=== PATIENT | male | born 1935 | race Caucasian/White ===

== ENCOUNTER 2018-08-30 09:01 | Inpatient (IN) ==
--- NOTE | 2018-08-30 09:11 | Emergency Department Note ---
Disposition Clinical Impression: Altered mental status, Fever, History of shingles, Congestion of respiratory tract, Dementia Disposition: Admitted As Inpatient Forms: ED Satisfaction Letter, Work/School Release Time of Disposition: 10:34 General Adult HPI - General Chief complaint: ED General Medical Stated complaint: increased confusion/congestion/tid pod ingestion Time Seen by Provider: 08/30/18 09:01 Source: patient Mode of arrival: ambulatory Limitations: no limitations Nursing Notes Reviewed: Yes Vital Signs Reviewed: Yes - History of Present Illness HPI Narrative: Patient arrives by EMS after having a decreased mental status or change in mental status. He ate department tide pod last night. His appetite seems to have been good but he is been losing weight over the last few months. The patient has shingles and is currently under treatment for this. Onset (ago): Just [employer] Location: other (Generally debilitated with altered mentation) Pain Scale: 0 Consistency: constant Improves with: nothing Worsens with: nothing - Related Data Allergies Allergy/AdvReac Type Severity Reaction Status Date / Time No Known Allergies Allergy Verified 08/30/18 09:26 All systems ED: reviewed and negative except as stated. Review of Systems: As Per HPI Constitutional: Denies: fever, chills, weakness, weight change Eyes: Denies: eye pain, eye discharge, vision change ENT ED: Denies: ear pain, throat pain, dental pain, hearing loss, epistaxis, congestion, dysphagia Cardiovascular: Denies: chest pain, palpitations, dyspnea on exertion, edema, syncope Respiratory: Denies: cough, dyspnea, wheezes, hemoptysis, stridor Gastrointestinal: Denies: abdominal pain, nausea, vomiting, diarrhea, constipation, hematemesis, melena, hematochezia Genitourinary: Denies: urgency, dysuria, frequency, hematuria Musculoskeletal: Denies: back pain, neck pain, arthralgia, myalgia Integumentary: Denies: rash, abrasion, lesions Neurological: Reports: as per HPI, confusion, other (Altered mental status) Psychiatric: Denies: anxiety, depression, suicidal thoughts, homicidal thoughts, auditory hallucinations, visual hallucinations Endocrine: Denies: fatigue Hematological/Lymphatic: Denies: easy bleeding, easy bruising Allergic/Immunologic: Denies: facial swelling, urticaria Past Medical History - Past Medical History Attestation: Yes The following information was validated with the patient. Source: obtained from family, other (EMS) Physical Exam - General Limitations: altered mental status General appearance: alert, in no apparent distress, other (Disheveled appearance) - Head Head exam: atraumatic, normocephalic, normal inspection - Eye Eye exam: Present: normal appearance, PERRL, EOMI - ENT ENT exam: normal exam, normal oropharynx, mucous membranes moist - Neck Neck exam: Present: normal inspection, full ROM, trachea midline - Chest Chest inspection: Present: normal inspection, symmetric chest wall rise - Respiratory Respiratory exam: Present: normal lung sounds bilaterally - Cardiovascular Cardiovascular exam: Present: regular rate, normal rhythm, normal heart sounds - Abdominal Exam Abdominal exam: Present: soft, Non-Tender - Extremities Exam Extremities exam: Present: normal inspection, full ROM. Absent: tenderness, pedal edema - Back Exam Back exam: Present: normal inspection, full ROM. Absent: tenderness - Neurological Exam Neurological exam: Present: alert, CN II-XII intact, other (Appears oriented to person but not place or time) - Psychiatric Psychiatric exam: Present: normal affect, normal mood - Skin Skin exam: Present: warm, dry, intact, rash (Varicella-zoster rash to left mid abdomen) Course Vital Signs Temperature 101.6 F 08/30/18 09:02 Pulse Rate 126 08/30/18 09:02 Respiratory Rate 20 08/30/18 09:02 Blood Pressure 120/83 08/30/18 09:02 O2 Sat by Pulse Oximetry 94 08/30/18 09:02 Temperature 101.6 F 08/30/18 09:02 Pulse Rate 126 08/30/18 09:02 Respiratory Rate 20 08/30/18 09:02 Blood Pressure 120/83 08/30/18 09:02 O2 Sat by Pulse Oximetry 94 08/30/18 09:02 Oxygen Delivery Oxygen Delivery Room Air Medical Decision Making - MDM Narrative Medical decision making narrative: I Reviewed the patient's medication list Case was discussed with Dr. Brown who graciously accepts admission - Lab Data Lab results reviewed: Yes I reviewed the patient's lab results. Result diagrams: 08/30/18 09:30 Lab Results 08/30/18 Range/Units 09:30 WBC 18.1 H (4.3-11.1) K/mcL RBC 4.40 (4.19-5.50) M/mcL Hgb 13.4 (12.9-16.9) g/dL Hct 39.0 (37.5-50.1) % MCV 88.6 (83.0-100.0) fL MCH 30.5 (28.0-33.3) pg MCHC 34.4 (31.6-35.5) g/dL RDW 13.0 (11.5-14.5) % Plt Count 234 (140-400) K/mcL MPV 9.4 (9.4-12.4) fL Immature Gran % 0.5 (0-4) % Seg Neutrophils % 87.8 % Lymphocytes % 3.8 % Monocytes % 7.6 % Eosinophils % 0.1 % Basophils % 0.2 % Neutrophils # 15.9 H (1.6-8.9) K/mcL Lymphocytes # 0.7 (0.6-4.6) K/mcL Monocytes # 1.4 H (0.0-1.3) K/mcL Eosinophils # 0.0 (0.0-0.6) K/mcL Basophils # 0.0 (0.0-0.2) K/mcL - Radiology Data Radiology results reviewed: Yes I reviewed the patient's radiology results. - EKG Data EKG #1 EKG attestation: Yes I reviewed and interpreted this EKG. EKG results narrative: EKG shows probable sinus tachycardia with a rate of 125 bpm ID interval is 121 ms [place] 85 ms QTQTC intervals 400 9590 ms respectively R axis of -[address] elevation
[2018-08-30] MEDS ORDERED: 0.9 % Sodium Chloride 1,000 ML IVC SCH (09:15)
[2018-08-30] MEDS ORDERED: 0.9 % Sodium Chloride 1,000 ML IVC ONE ×4 (09:16→13:03)
[2018-08-30 09:51] LABS: Basophils % 0.2 %; Eosinophils % 0.1 %; Hemoglobin 13.4 g/dL (12.9-16.9); Immature Granulocytes % 0.5 % (0-4); Lymphocytes # 0.7 K/mcL (0.6-4.6); Lymphocytes % 3.8 %; Mean Corpuscular HGB Conc 34.4 g/dL (31.6-35.5); Mean Corpuscular Hemoglobin 30.5 pg (28.0-33.3); Mean Corpuscular Volume 88.6 fL (83.0-100.0); Mean Platelet Volume 9.4 fL (9.4-12.4); Monocytes # 1.4 K/mcL (0.0-1.3); Monocytes % 7.6 %; Neutrophils # 15.9 K/mcL (1.6-8.9); Platelet Count 234 K/mcL (140-400); Segmented Neutrophils % 87.8 %; White Blood Count 18.1 K/mcL (4.3-11.1)
[2018-08-30 10:10] LABS: Troponin I 0.03 ng/mL (< 0.04)
[2018-08-30 10:11] LABS: Albumin 3.8 g/dL (3.5-5.7); Albumin/Globulin Ratio 1.1 (1.1-2.2); Bilirubin,Total 0.8 mg/dL (0.3-1.0); Calcium 9.3 mg/dL (8.6-10.3); Globulin 3.5 g/dL (2.4-3.5); Potassium 4.2 mEq/L (3.5-5.1); Total Protein 7.3 g/dL (6.4-8.9)
[2018-08-30 10:17] LABS: Bilirubin,Urine Negative (Negative); Blood,Urine Moderate (Negative); Clarity,Urine Slightly Cloudy (Clear); Color,Urine Yellow (Yellow); Glucose,Urine (UA) Normal (Normal); Ketones,Urine Negative (Negative); Leukocyte Esterase,Urine Negative (Negative); Nitrite,Urine Negative (Negative); Protein,Urine 100 mg/dL (Neg-Trace); Specific Gravity,Urine >= 1.030 (1.010-1.025); Urobilinogen,Urine Normal (Normal)
[2018-08-30] MEDS ORDERED: Acetaminophen 650 MG RECTAL SUPP RC ONE (10:21)
[2018-08-30 10:25] LABS: Amorphous Sediment,Urine Moderate (Few); Granular Casts,Urine Moderate per lpf (None Seen); Hyaline Casts,Urine Few per lpf (None-Few); Renal Epithelial Cells,Urine Few per hpf (None-Few); Squamous Epithelial Cell,Urine Few per lpf (None-Few); Transitional Epi Cells,Urine Moderate per hpf (None-Few); WBC,Urine 0-3 per hpf (0-3)
[2018-08-30 10:26] LABS: Mucus,Urine Few (Few)
[2018-08-30] MEDS ORDERED: cefTRIAXone 1,000 MG in 0.9 % Sodium Chloride Mini Bag 100 ML IVPB ONE (10:34)
[2018-08-30] MEDS ORDERED: Naloxone 0.4 MG/ML INJ IVP PRN (13:03)
--- NOTE | 2018-08-30 14:02 | Internal Med History&Physical ---
Date of Encounter: 08/30/18 Time of Encounter: 13:55 Assessment and Plan (1) Altered mental status Current visit: Yes Status: Acute Should improve as underlying infection is Qualifiers: Altered mental status type: unspecified Qualified Code(s): R41.82 - Altered mental status, unspecified (2) Bronchitis Current visit: Yes Status: Acute Start Rocephin and azithromycin, repeat chest x-ray could be pneumonia follow-up CBC (3) Ingestion of foreign material Current visit: Yes Status: Acute Poison control was contacted Qualifiers: Encounter type: subsequent encounter Qualified Code(s): T18.9XXD - Foreign body of alimentary tract, part unspecified, subsequent encounter (4) Elevated lactic acid level Current visit: Yes Status: Acute Concerns about sepsis the nurse will inquire about sepsis protocol and how to get going (5) Acute kidney injury Current visit: Yes Status: Acute IV hydration follow the BMP (6) Leukocytosis Current visit: Yes Status: Acute Zosyn and Rocephin and follow-up CBC Qualifiers: Leukocytosis type: unspecified Qualified Code(s): D72.829 - Elevated white blood cell count, unspecified (7) Tachycardia Current visit: Yes Status: Acute Should improve with IV fluids and infection treatment (8) Skin abrasion Current visit: Yes Status: Acute We will wash and use anabolic ointment until clear (9) Fever Current visit: Yes Status: Acute She did improve as infection is being treated Qualifiers: Fever type: due to other condition Qualified Code(s): R50.81 - Fever presenting with conditions classified elsewhere (10) History of shingles Current visit: Yes Status: Acute Looks like it is fading is not complaining of any pain (11) Dementia Current visit: Yes Status: Acute Fasteners to get information from the hospital tomorrow Qualifiers: Dementia type: unspecified type Dementia behavioral disturbance: without behavioral disturbance Qualified Code(s): F03.90 - Unspecified dementia without behavioral disturbance Internal Medicine - H&P: HPI Admitted From: Home Plans for Post Hospital Care: Home History of present illness: Mr. Gao is a 81 year old male [facility] but [facility] because of his sepsis appearance. He was brought in by EMS to emergency room after having change in mental status currently eating Tide pods, poison control was called, apparently has been treated for shingles left abdominal area he has a history of dementia and he did not give me much information. Blood that was from the emergency room from nursing staff. Does have an abrasion on his right scalp any mention following couple weeks ago but he must be scratching at scab. Reports doing well right now chest x-ray showed no acute abnormality he does have a white count of 18.1 increased neutrophil urine elevated 24 creatinine 1.41 lactic acid 4.4 he has urine protein loss. CT scan of the brain showed chronic small vessel disease and mild atrophy he reports having a cough but unsure what color sputum redness. Dr. christie thought that he probably has pneumonia because he has dehydration and did not show up on the chest x-ray. We will admit him to hospital answers questions concerns addressed. He denied ch est pain shortness of breath. Past Med Surg Social Fam HX - Past Medical History Source: other (EMS and emergency room) Medical history: dementia Psychiatric history: no psych history - Past Surgical History Surgical History: no surgical history - Social History Smoking Status: Unknown if ever smoked Smokeless Tobacco Status: No Alcohol use: none Drug use: none - Family History Father Living Status: Mother Living Status: Internal Medicine - H&P: Meds Allergy/AdvReac Type Severity Reaction Status Date / Time No Known Allergies Allergy Verified 08/30/18 09:26 All Systems PM: A 10-system review of systems was performed and is negative for pertinent findings except as documented above in the HPI. - Constitutional Vitals: Temp Pulse Resp BP Pulse Ox 101.4 F 123 18 99/67 94 08/30/18 12:07 08/30/18 10:37 08/30/18 12:07 08/30/18 12:07 08/30/18 10:37 General appearance: Present: A&O X 0 - Head Head exam: Present: normocephalic Additional comments: He has a skin Eick abrasion on the right frontal hairline area looks like he scratches it, no pus or spreading redness - Eye Eye exam: Present: PERRL, conjuntiva pink, sclera anicteric Pupils: Present: PERRL - Neck Neck exam general surgery: Present: supple, trachea midline. Absent: lymphadenopathy - Respiratory Respiratory exam: Present: CTAB (Except for anterior congestion). Absent: acc essory muscle use, rales, rhonchi, wheezes - Cardiovascular Cardiovascular exam: Present: +S1, +S2, tachycardia. Absent: diastolic murmur, gallop, rubs, systolic murmur - GI/Abdominal GI/Abdominal exam: Present: normal bowel sounds, soft, no peritoneal signs. Absent: distended, tenderness - Extremities Exam Extremities exam: Present: warm, radial pulses palpable and symmetrical. Absent: calf tenderness, cyanotic, pedal edema - Neurological Exam Neurological exam: Absent: facial droop, speech deficit - Skin Skin exam: Present: dry, intact, rash (Shingles rash on the left lower abdominal area that is somewhat fading) Internal Med - H&P Results - Labs CBC & Chem 7: 08/30/18 09:30 08/30/18 09:30 Labs: Short CBC 08/30/18 Range/Units 09:30 WBC 18.1 H (4.3-11.1) K/mcL Hgb 13.4 (12.9-16.9) g/dL Hct 39.0 (37.5-50.1) % Plt Count 234 (140-400) K/mcL Neutrophils # 15.9 H (1.6-8.9) K/mcL BMP 08/30/18 09:30 Sodium 138 Potassium 4.2 Chloride 102 Carbon Dioxide 24 BUN 24 H Creatinine 1.41 H Glucose 139 H Calcium 9.3 Cardiac Enzymes 08/30/18 Range/Units 09:30 Troponin I 0.03 (< 0.04) ng/mL Liver Function 08/30/18 Range/Units 09:30 Total Bilirubin 0.8 (0.3-1.0) mg/dL AST 23 (13-39) Units/L ALT 17 (7-52) Units/L Alkaline Phosphatase 80 (34-104) Units/L Albumin 3.8 (3.5-5.7) g/dL Urine 08/30/18 Range/Units 10:13 Urine Color Yellow (Yellow) Urine Clarity Slightly Cloudy A (Clear) Urine pH 5.0 (5.0-8.0) pH Units Ur Specific Henderson >= 1.030 H (1.010-1.025) Urine Protein 100 H (Neg-Trace) mg/dL Urine Glucose (UA) Normal (Normal) mg/dL - Impressions ITS Impressions Chest X-Ray 08/30/18 09:10 IMPRESSION: 1. No acute cardiopulmonary disease. D/ / 08/30/2018 09:36:34 Lilibeth Frankel MD / gustavo Interpreting Provider: Lilibeth Frankel MD
[2018-08-30] MEDS: Azithromycin 500 MG in D5% in Water 250 ML IVPB SCH (15:13)
[2018-08-30] MEDS: 0.9 % Sodium Chloride 1,000 ML IVC SCH (15:13)
[2018-08-30] MEDS: Piperacillin/Tazobactam 3.375 GM in 0.9 % Sodium Chloride Mini Bag 100 ML IVP SCH (16:25)
[2018-08-31] MEDS: Piperacillin/Tazobactam 3.375 GM in 0.9 % Sodium Chloride Mini Bag 100 ML IVP SCH ×3 (00:29→18:49)
[2018-08-31] MEDS: 0.9 % Sodium Chloride 1,000 ML IVC SCH ×2 (04:01→10:28)
[2018-08-31] MEDS: *HR* Enoxaparin 40 MG/0.4 ML SYRINGE SQ SCH (05:17)
[2018-08-31 05:38] LABS: Basophils # 0.1 K/mcL (0.0-0.2); Basophils % 0.4 %; Eosinophils # 0.1 K/mcL (0.0-0.6); Eosinophils % 0.6 %; Hematocrit 29.7 % (37.5-50.1); Hemoglobin 10.3 g/dL (12.9-16.9); Immature Granulocytes % 0.4 % (0-4); Lymphocytes # 1.7 K/mcL (0.6-4.6); Lymphocytes % 12.3 %; Mean Corpuscular HGB Conc 34.7 g/dL (31.6-35.5); Mean Corpuscular Hemoglobin 30.5 pg (28.0-33.3); Mean Corpuscular Volume 87.9 fL (83.0-100.0); Mean Platelet Volume 9.4 fL (9.4-12.4); Monocytes # 1.1 K/mcL (0.0-1.3); Monocytes % 8.1 %; Neutrophils # 10.8 K/mcL (1.6-8.9); Platelet Count 176 K/mcL (140-400); Red Blood Count 3.38 M/mcL (4.19-5.50); Red Cell Distribution Width 13.1 % (11.5-14.5); Segmented Neutrophils % 78.2 %; White Blood Count 13.8 K/mcL (4.3-11.1)
[2018-08-31 05:55] LABS: BUN/Creatinine Ratio 18 (6-26); Blood Urea Nitrogen 22 mg/dL (8-23); Calcium 8.5 mg/dL (8.6-10.3); Carbon Dioxide 23 mEq/L (23-29); Chloride 107 mEq/L (98-107); Glucose 111 mg/dL (70-105); Osmolality,Calculated 286 (280-300); Potassium 3.7 mEq/L (3.5-5.1); Sodium 136 mEq/L (136-145); eGFR For African Americans > 60 (> 60); eGFR For Non-African Americans 56 (> 60)
[2018-08-31] MEDS: 0.45 % Sodium Chloride w/KCl 20 MEQ/1,000 ML MLS IVC SCH (13:34)
--- NOTE | 2018-08-31 14:35 | Internal Med Progress Note ---
Date of Encounter: 08/31/18 Time of Encounter: 12:35 - Assessment and plan (1) Altered mental status Current Visit: Yes Status: Acute Assessment and plan: August 31. Suspect back to baseline mental status with no impairment of abram rtness. There appears to be significant underlying dementia. Qualifiers: Altered mental status type: unspecified Qualified Code(s): R41.82 - Altered mental status, unspecified (2) Anemia Current Visit: Yes Status: Acute Assessment and plan: August 31. Hemoglobin has decreased to 10.3 with administration of IV fluids. Anemia testing will be done. Qualifiers: Anemia type: unspecified type Qualified Code(s): D64.9 - Anemia, unspecified (3) Dementia Current Visit: Yes Status: Acute Assessment and plan: August 31. MMSE will be done. B12 and TSH will be ordered. Qualifiers: Dementia type: unspecified type Dementia behavioral disturbance: without behavioral disturbance Qualified Code(s): F03.90 - Unspecified dementia without behavioral disturbance (4) Ingestion of foreign material Current Visit: Yes Status: Acute Assessment and plan: August 31. Observe Qualifiers: Encounter type: subsequent encounter Qualified Code(s): T18.9XXD - Foreign body of alimentary tract, part unspecified, subsequent encounter (5) Acute kidney injury Current Visit: Yes Status: Acute Assessment and plan: August 31. Creatinine has decreased to 1.22. Continue IV fluids and recheck labs in a.m. (6) Elevated lactic acid level Current Visit: Yes Status: Acute Assessment and plan: August 31. Continue antibiotics. Probiotics will be started. Recheck labs in a.m. - Subjective Interval history: August 31. He has no new complaints. He was admitted through emergency room with confusion and reportedly ate a Tide laundry detergent pod. He cannot give significant reliable history because of dementia. He denies pain or dyspnea at the present time. - Constitutional Vitals: Temp Pulse Resp BP Pulse Ox 99.7 F 77 16 111/71 94 08/31/18 10:37 08/31/18 10:37 08/31/18 10:37 08/31/18 10:37 08/31/18 10:37 General appearance: Present: A&O X 0 Exam: He is sitting in a chair at bedside resting comfortably and appears in no acute distress. HEENT is unremarkable. Heart is regular without murmurs gallops or ectopics. Lungs are clear. Abdomen is soft and nontender. Exam is limited because he is in the seated position. Extremities show no pitting edema. Neurologic exam shows impaired mental status with inability to state his age. He does know his year of . He cannot do simple money math consistently. He has no pronator drift and there is no cogwheeling or rigidity on passive range of motion of his arms. I reviewed his medications and lab results. Internal Medicine: Result - Labs CBC & Chem 7: 08/31/18 05:27 08/31/18 05:27 Labs: Short CBC 08/31/18 Range/Units 05:27 WBC 13.8 H (4.3-11.1) K/mcL Hgb 10.3 L D (12.9-16.9) g/dL Hct 29.7 L (37.5-50.1) % Plt Count 176 (140-400) K/mcL Neutrophils # 10.8 H (1.6-8.9) K/mcL BMP 08/31/18 05:27 Sodium 136 Potassium 3.7 Chloride 107 Carbon Dioxide 23 BUN 22 Creatinine 1.22 Glucose 111 H Calcium 8.5 L - Impressions Impressions Chest X-Ray 08/30/18 09:10 IMPRESSION: 1. No acute cardiopulmonary disease. D/ / 08/30/2018 09:36:34 Lilibeth Frankel MD / gustavo Interpreting Provider: Lilibeth Frankel MD Consult Discharge Plan - Plan Referrals: [facility] [Primary Care Provider[facility] - 1 week
[2018-08-31] MEDS: Azithromycin 500 MG in D5% in Water 250 ML IVPB SCH (14:42)
--- NOTE | 2018-08-31 18:07 | Electrocardiograph Report ---
[place] [id number] Test Date: 2018-08-30 Pat Name: Fabiano Gao Department: EDP-11 Room: [facility] Gender: M Sticker Hand: : 1935 Requested By: Gasper Call Order Number: [id number] Reading MD: Kasandra Arcos Measurements Intervals [place] Rate: 125 P: 259 MI: 121 QRS: -24 QRSD: 85 T: 68 QT: 409 QTc: 590 Interpretive Statements Ectopic atrial tachycardia Borderline left axis deviation Anterior infarct, old Electronically Signed On 08-31-2018 18:05:48 EDT by Kasandra Arcos
[2018-08-31] MEDS: Lactobacillus 1 EACH CAP.SPRINK PO SCH (20:59)
[2018-09-01] MEDS: Piperacillin/Tazobactam 3.375 GM in 0.9 % Sodium Chloride Mini Bag 100 ML IVP SCH ×2 (03:18→07:41)
[2018-09-01 06:27] LABS: Basophils # 0.1 K/mcL (0.0-0.2); Basophils % 0.4 %; Eosinophils # 0.3 K/mcL (0.0-0.6); Eosinophils % 2.4 %; Hematocrit 30.8 % (37.5-50.1); Hemoglobin 10.6 g/dL (12.9-16.9); Immature Granulocytes % 0.4 % (0-4); Lymphocytes # 1.7 K/mcL (0.6-4.6); Lymphocytes % 15.1 %; Mean Corpuscular HGB Conc 34.4 g/dL (31.6-35.5); Mean Corpuscular Hemoglobin 30.5 pg (28.0-33.3); Mean Corpuscular Volume 88.8 fL (83.0-100.0); Monocytes % 8.6 %; Platelet Count 202 K/mcL (140-400); Red Blood Count 3.47 M/mcL (4.19-5.50); Red Cell Distribution Width 13.1 % (11.5-14.5); Segmented Neutrophils % 73.1 %; White Blood Count 11.3 K/mcL (4.3-11.1)
[2018-09-01 06:28] LABS: Neutrophils # 8.3 K/mcL (1.6-8.9)
[2018-09-01] MEDS: *HR* Enoxaparin 40 MG/0.4 ML SYRINGE SQ SCH (06:56)
[2018-09-01 06:57] LABS: BUN/Creatinine Ratio 14 (6-26); Blood Urea Nitrogen 18 mg/dL (8-23); Calcium 8.8 mg/dL (8.6-10.3); Carbon Dioxide 24 mEq/L (23-29); Chloride 105 mEq/L (98-107); Glucose 93 mg/dL (70-105); Magnesium 1.9 mg/dL (1.6-2.6); Osmolality,Calculated 286 (280-300); Potassium 3.5 mEq/L (3.5-5.1); Sodium 137 mEq/L (136-145); eGFR For African Americans > 60 (> 60); eGFR For Non-African Americans 52 (> 60)
[2018-09-01 07:04] LABS: Thyroid Stimulating Hormone 2.414 mcIU/mL (0.340-5.600)
[2018-09-01] MEDS: Lactobacillus 1 EACH CAP.SPRINK PO SCH ×2 (07:42→22:28)
--- NOTE | 2018-09-01 09:01 | Internal Med Progress Note ---
Date of Encounter: 09/01/18 Time of Encounter: 08:54 - Assessment and plan (1) Altered mental status Current Visit: Yes Status: Acute Assessment and plan: August 31. Suspect back to baseline mental status with no impairment of abram rtness. There appears to be significant underlying dementia. Qualifiers: Altered mental status type: unspecified Qualified Code(s): R41.82 - Altered mental status, unspecified (2) Dementia Current Visit: Yes Status: Acute Assessment and plan: August 31. MMSE will be done. B12 and TSH will be ordered. September 01. MMSE not yet done. TSH was normal. B12 level pending. Qualifiers: Dementia type: unspecified type Dementia behavioral disturbance: without behavioral disturbance Qualified Code(s): F03.90 - Unspecified dementia without behavioral disturbance (3) Anemia Current Visit: Yes Status: Acute Assessment and plan: August 31. Hemoglobin has decreased to 10.3 with administration of IV fluids. Anemia testing will be done. September 01. Anemia testing pending. Hemoglobin stable at 10.6. Qualifiers: Anemia type: unspecified type Qualified Code(s): D64.9 - Anemia, unspecified (4) Ingestion of foreign material Current Visit: Yes Status: Acute Assessment and plan: August 31. Observe Qualifiers: Encounter type: subsequent encounter Qualified Code(s): T18.9XXD - Foreign body of alimentary tract, part unspecified, subsequent encounter (5) Acute kidney injury Current Visit: Yes Status: Acute Assessment and plan: August 31. Creatinine has decreased to 1.22. Continue IV fluids and recheck labs in a.m. September 01. Creatinine 1.32 today. 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 Continue antibiotics. Probiotics will be started. Recheck labs in a.m. - Subjective Interval history: August 31. He has no new complaints. He was admitted through emergency room with confusion and reportedly ate a Tide laundry detergent pod. He cannot give significant reliable history because of dementia. He denies pain or dyspnea at the present time. September 01. He has no new complaints. - Constitutional Vitals: Temp Pulse Resp BP Pulse Ox 98.4 F 84 16 149/86 96 09/01/18 07:14 09/01/18 07:14 09/01/18 07:14 09/01/18 07:14 09/01/18 07:14 General appearance: Present: A&O X 0 Exam: He is resting comfortably in bed and appears in no acute distress. He is awake but does not answer questions with appropriate answers but simply repeats the question in a paraphrased form. Heart is regular without murmurs gallops or ectopics. Lungs are clear. Extremities show no edema. I reviewed his medications and lab results. Internal Medicine: Result - Labs CBC & Chem 7: 09/01/18 04:20 09/01/18 04:20 Labs: Short CBC 09/01/18 Range/Units 04:20 WBC 11.3 H (4.3-11.1) K/mcL Hgb 10.6 L (12.9-16.9) g/dL Hct 30.8 L (37.5-50.1) % Plt Count 202 (140-400) K/mcL Neutrophils # 8.3 (1.6-8.9) K/mcL BMP 09/01/18 04:20 Sodium 137 Potassium 3.5 Chloride 105 Carbon Dioxide 24 BUN 18 Creatinine 1.32 H Glucose 93 Calcium 8.8 Consult Discharge Plan - Plan [facility]errals: [facility] [Primary Care Provider[facility] - 1 week
[2018-09-01 09:39] LABS: % Iron Saturation 8 % (20-55); Iron 15 mcg/dL (65-175); Transferrin 141 mg/dL (203-362)
[2018-09-01 09:58] LABS: Ferritin 427 ng/mL (20-250)
[2018-09-01] MEDS: Azithromycin 500 MG in D5% in Water 250 ML IVPB SCH (16:51)
[2018-09-02 06:10] LABS: Basophils % 0.5 %; Eosinophils # 0.4 K/mcL (0.0-0.6); Eosinophils % 4.8 %; Hematocrit 33.4 % (37.5-50.1); Hemoglobin 11.3 g/dL (12.9-16.9); Immature Granulocytes % 0.4 % (0-4); Lymphocytes # 1.8 K/mcL (0.6-4.6); Lymphocytes % 21.8 %; Mean Corpuscular HGB Conc 33.8 g/dL (31.6-35.5); Mean Corpuscular Hemoglobin 30.4 pg (28.0-33.3); Mean Corpuscular Volume 89.8 fL (83.0-100.0); Mean Platelet Volume 9.8 fL (9.4-12.4); Monocytes # 0.7 K/mcL (0.0-1.3); Monocytes % 8.5 %; Neutrophils # 5.4 K/mcL (1.6-8.9); Platelet Count 220 K/mcL (140-400); Red Blood Count 3.72 M/mcL (4.19-5.50); Red Cell Distribution Width 13.1 % (11.5-14.5); White Blood Count 8.4 K/mcL (4.3-11.1)
[2018-09-02 06:36] LABS: Calcium 8.9 mg/dL (8.6-10.3); Potassium 3.9 mEq/L (3.5-5.1)
[2018-09-02] MEDS: *HR* Enoxaparin 40 MG/0.4 ML SYRINGE SQ SCH (07:06)
[2018-09-02 07:36] VITALS: BP 143/64
[2018-09-02] MEDS ORDERED: Cyanocobalamin (B-12) 1,000 MCG/ML VIAL IM ONE (09:22)
[2018-09-02] MEDS: Lactobacillus 1 EACH CAP.SPRINK PO SCH (09:37)
[2018-09-02] MEDS: 0.45 % Sodium Chloride w/KCl 20 MEQ/1,000 ML MLS IVC SCH (09:40)
[2018-09-02] MEDS: Piperacillin/Tazobactam 3.375 GM in 0.9 % Sodium Chloride Mini Bag 100 ML IVP SCH (09:40)
--- NOTE | 2018-09-02 09:50 | Discharge Summary ---
Orders not resulted at time of discharge: Pending orders 08/30/18 09:30 Culture,Blood [BC] Stat 08/30/18 13:03 ECG 12 lead ECG [ECG] Stat Date of Encounter: 09/02/18 Time of Encounter: 09:45 - Discharge Diagnosis (1) Altered mental status Priority: Primary Status: Resolved Qualifiers: Altered mental status type: unspecified Qualified Code(s): R41.82 - Altered mental status, unspecified (2) Dementia Priority: Secondary Status: Chronic Qualifiers: Dementia type: unspecified type Dementia behavioral disturbance: without behavioral disturbance Qualified Code(s): F03.90 - Unspecified dementia without behavioral disturbance (3) Anemia Priority: Secondary Status: Acute Qualifiers: Anemia type: unspecified type Qualified Code(s): D64.9 - Anemia, unspecified (4) Ingestion of foreign material Priority: Secondary Status: Acute Qualifiers: Encounter type: subsequent encounter Qualified Code(s): T18.9XXD - Foreign body of alimentary tract, part unspecified, subsequent encounter (5) Acute kidney injury Priority: Secondary Status: Acute (6) Elevated lactic acid level Priority: Secondary Status: Resolved (7) CKD (chronic kidney disease) stage 3, GFR 30-59 ml/min Priority: Secondary Status: Chronic Hospital course: Mr. Gao is a year old male who presented to emergency room with altered mental status. He had reportedly consumed a Tide pod.. He was admitted to [facility] floor for ongoing care needs. Initial orders were written by the emergency room physician. Dr. Brown saw him on August 30 and performed a history and physical. I assumed care on August 31. His mental status returned to baseline. MMSE was done with score of 9/30. Social service intervention was done and the patient's sons agreed he was unsafe to return to independent living at home. Arrangements were complete on September 02 for him to be discharged to [facility] for ongoing care needs. Dementia workup showed TSH normal at 2.414. B12 level was significantly low at 144. He was given a B12 injection and will start oral B12 supplement. Hemoglobin decreased to 10.3 on August 31. Anemia testing was done and showed low low B12 level as per above. Additional labs showed iron 15, transferrin saturation 8%, transferrin 141, ferritin 427, and folate > 22.3. He will start oral ferrous sulfate with ascorbic acid. B12 supplemental be given as per above. Labs will be monitored at the [facility]. He was started on Zosyn and Zithromax empirically for leukocytosis. The etiology of leukocytosis was not determined. Blood cultures remain negative at time of discharge. WBC normalized to 8.4 on September 02 with resolution of left shift. He will continue antibiotics and probiotic for 2 additional days at discharge. Creatinine showed fluctuation but was overall minimally changed at 1.38 on day of discharge. It appears he has chronic kidney disease stage III. This will be monitored at the [facility]. He will be discharged today to [facility] [place] and follow with me. - Time Spent with Patient Total time spent providing and/or coordinating discharge services: - Discharge Medications Prescriptions: New Amoxicillin/Clavulanate [Augmentin] 875 mg PO BIDWM 2 Days tablet Lactobacillus [Culturelle] 1 each PO BID 2 Days cap.sprink Ferrous Sulfate 325 mg PO DAILY 365 Days tablet Cyanocobalamin (B-12) [Vitamin B12] 1,000 mcg PO DAILY 365 Days tablet Ascorbic Acid [Vitamin C] 500 mg PO DAILY 365 Days tablet Azithromycin [Zithromax] 250 mg PO DAILY 2 Days tablet Home Medications: Amoxicillin/Clavulanate [Augmentin] 875 mg PO BIDWM 2 Days tablet 09/02/18 [Rx] Ascorbic Acid [Vitamin C] 500 mg PO DAILY 365 Days tablet 09/02/18 [Rx] Azithromycin [Zithromax] 250 mg PO DAILY 2 Days tablet 09/02/18 [Rx] Cyanocobalamin (B-12) [Vitamin B12] 1,000 mcg PO DAILY 365 Days tablet 09/02/18 [Rx] Ferrous Sulfate 325 mg PO DAILY 365 Days tablet 09/02/18 [Rx] Lactobacillus [Culturelle] 1 each PO BID 2 Days cap.sprink 09/02/18 [Rx] Allergies/Adverse Reactions: Allergy/AdvReac Type Severity Reaction Status Date / Time No Known Allergies Allergy Verified 08/30/18 09:26 Date of admission: 08/30/18 14:12 [facility] physician[facility] Consults: 08/30/18 14:51 Consult to Nutrition [CONS] Routine Comment: Consulting Provider: NUTRITION Reason for Dietary Consult: MST Score Consult to Sample Coordinator [CONS] Routine Reason for SW Consult: Discharge Planning - Constitutional Vitals: Temp Pulse Resp BP Pulse Ox 98.6 F 63 16 143/64 95 09/02/18 07:36 09/02/18 07:36 09/02/18 07:36 09/02/18 07:36 09/02/18 07:36 General appearance: Present: A&O X 0 - Patient Status Disposition: Transfer SNF - Discharge Instructions - Diet and Activity Activity: as per physical therapy Diet: regular diet
--- NOTE | 2018-09-02 10:06 | Physician Discharge Referral ---
ExtendedCare Referral Info Transfer To: [facility] Provider in Charge: Adeel Provider in Charge after Transfer: PCP (Adeel) - Diagnosis (1) Altered mental status Priority: Primary Status: Resolved (2) Dementia Priority: Secondary Status: Chronic (3) Anemia Priority: Secondary Status: Acute (4) Ingestion of foreign material Priority: Secondary Status: Acute (5) Acute kidney injury Priority: Secondary Status: Acute (6) Elevated lactic acid level Priority: Secondary Status: Resolved (7) CKD (chronic kidney disease) stage 3, GFR 30-59 ml/min Priority: Secondary Status: Chronic Prognosis: Fair Aware of Diagnosis: Family Aware of Prognosis: Family - Transfer Medications Prescriptions: Amoxicillin/Clavulanate [Augmentin] 875 mg PO BIDWM 2 Days tablet Lactobacillus [Culturelle] 1 each PO BID 2 Days cap.sprink Ferrous Sulfate 325 mg PO DAILY 365 Days tablet Cyanocobalamin (B-12) [Vitamin B12] 1,000 mcg PO DAILY 365 Days tablet Ascorbic Acid [Vitamin C] 500 mg PO DAILY 365 Days tablet Azithromycin [Zithromax] 250 mg PO DAILY 2 Days tablet Home Medications: Amoxicillin/Clavulanate [Augmentin] 875 mg PO BIDWM 2 Days tablet 09/02/18 [Rx] Ascorbic Acid [Vitamin C] 500 mg PO DAILY 365 Days tablet 09/02/18 [Rx] Azithromycin [Zithromax] 250 mg PO DAILY 2 Days tablet 09/02/18 [Rx] Cyanocobalamin (B-12) [Vitamin B12] 1,000 mcg PO DAILY 365 Days tablet 09/02/18 [Rx] Ferrous Sulfate 325 mg PO DAILY 365 Days tablet 09/02/18 [Rx] Lactobacillus [Culturelle] 1 each PO BID 2 Days cap.sprink 09/02/18 [Rx] Allergies/Adverse Reactions: Allergy/AdvReac Type Severity Reaction Status Date / Time No Known Allergies Allergy Verified 08/30/18 09:26 - Respiratory Orders Smoking Cessation: Smoking cessation has been advised. For more information, call the [place] Tobacco Quit Line at 1-469-PYSE-NOW. - Lab Orders Lab Orders: Other (include drug levels w/frequency) (CBC with differential, BMP in 2 weeks and every 3 months. Anemia testing in 3 months.) - Mobility Orders Ambulate - Rehabiliation Orders Rehab Potential: Poor - Diet Orders Regular CERTIFICATION: I certify that the transfer of the above named patient to an Extended Care Facility is necessary for the continuing treatment of the diagnosis listed. The above information is true and accurate reflection of patient's current condition. Confidential - Redisclosure prohibited without a patient's written consent.
== END 2018-09-02 11:18 | DRG 394 ==
LOC: INPPIK 09:01 → EMEROOPIK 09:01 → INPPIK 12:11
PROVIDERS: ADMIT Family Medicine; ATTEND Internal Medicine